=== PATIENT | female | born 1955 | race Asian ===

== ENCOUNTER 2018-04-11 01:08 | Emergency (ER) | payer BC ==
[2018-04-11] MEDS: IBUPROFEN 600 MG TAB PO (02:02)
[2018-04-11 02:16] LABS: ADD UMIC YES; UR ASCORBIC ACID NEGATIVE (NEGATIVE); UR BACTERIA FEW /HPF (NONE SEEN); UR BILIRUBIN (Dip) NEGATIVE (NEGATIVE); UR BLOOD (Dip) 1+ mg/dL (NEGATIVE); UR CLARITY SLIGHTLY CLOUDY (CLEAR); UR COLOR YELLOW (YELLOW); UR GLUCOSE (Dip) NEGATIVE (NEGATIVE); UR KETONES (Dip) NEGATIVE (NEGATIVE); UR LEUKOCYTE ESTERASE (Dip) 3+ Leu/ul (NEGATIVE); UR MUCUS FEW /HPF (NONE SEEN); UR NITRITE (Dip) NEGATIVE (NEGATIVE); UR RBC 7 /HPF (0-5); UR SPECIFIC GRAVITY (Dip) 1.014 (1.003-1.030); UR TOTAL PROTEIN (Dip) NEGATIVE (NEGATIVE); UR UROBILINOGEN (Dip) NEGATIVE (NEGATIVE); UR WBC > 182 /HPF (0-5)
[2018-04-11] MEDS: CEPHALEXIN 500 MG CAP PO (02:59)
== END 2018-04-11 03:16 | disposition home or self-care (01) ==
LOC: E/R 01:08
DX: N39.0 Urinary tract infection, site not specified (principal); I10 Essential (primary) hypertension; Z85.3 Personal history of malignant neoplasm of breast
CPT/HCPCS: 81001; 87086; 99283

== ENCOUNTER 2018-06-11 07:36 | Emergency (ER) | payer BC | END 2018-06-11 08:16 | disposition home or self-care (01) | LOC: FTE 07:36 | DX: H00.015 Hordeolum externum left lower eyelid (principal); I10 Essential (primary) hypertension; Z85.3 Personal history of malignant neoplasm of breast | CPT/HCPCS: 99283 ==